=== PATIENT | male | born 1985 | race Two or more races ===

== ENCOUNTER → 2019-12-07 | Day surgery (SDC) | payer MEDICARE ==
[2019-11-26 09:04] LABS: EOSINOPHILS % (AUTO) 1.2 % (0.0-3.0); HEMATOCRIT 31.3 % (42.0-52.0); HEMOGLOBIN 10.7 G/DL (14.2-18.0); LYMPHOCYTES % (AUTO) 41.5 % (20.0-45.0); MEAN CORPUSCULAR VOLUME 84 FL (80-99); MONOCYTES % (AUTO) 7.2 % (1.0-10.0); NEUTROPHILS % (AUTO) 49.1 % (45.0-75.0); PLATELET COUNT 349 K/UL (150-450); RED BLOOD COUNT 3.72 M/UL (4.70-6.10); RED CELL DISTRIBUTION WIDTH 12.2 % (11.6-14.8); WHITE BLOOD COUNT 5.2 K/UL (4.8-10.8)
[2019-11-26 09:09] LABS: ANION GAP 7 mmol/L (5-15); BLOOD UREA NITROGEN 33 mg/dL (7-18); CALCIUM 9.1 MG/DL (8.5-10.1); CARBON DIOXIDE 26 MMOL/L (21-32); CHLORIDE 100 MMOL/L (98-107); CREATININE 1.2 MG/DL (0.55-1.30); POTASSIUM 5.6 MMOL/L (3.5-5.1); SODIUM 133 MMOL/L (136-145)
[2019-11-26 09:11] LABS: INR 0.9 (0.9-1.1)
--- NOTE | 2019-11-26 09:45 | Diagnostic Imaging Report ---
Procedure: XRAY Chest 2v Reason for study: Preoperative examination. Cough. Comparison films: 06/30/2005. FINDINGS: Frontal and lateral views of the chest are obtained. Vascularity is normal. The lung hernández are clear bilaterally. Cardiac and mediastinal silhouette are within normal limits. CP angles are sharp. The bony thorax appear unremarkable. IMPRESSION: NO ACUTE CARDIOPULMONARY DISEASE.
--- NOTE | 2019-11-26 12:30 | Pre-op HX & Phy Repo 2 SIG ---
DATE OF ADMISSION: 11/26/2019 REASON FOR EVALUATION: I was asked by Dr. Pasquale Darnell to see this 34-year-old male, who is going for elective surgery on the right eye on December 07, 2019 at this [facility] Procedure Department. The patient was evaluated and chart was reviewed. The patient is a 34-year-old male with right eye cataract. Please see History and Physical by Dr. Pasquale Darnell. PAST MEDICAL HISTORY: Remarkable for type 1 insulin-dependent diabetes mellitus, peripheral diabetic neuropathy. The patient is HIV positive. Denies history of chest pain, palpitation, or heart attack. The patient has a history of hypertension, untreated, given the patient has a prescription from his primary care physician. Denies history of pulmonary problem, no asthma or bronchitis. No history of stroke or seizures. Denies history of GI problems, hepatitis, gastritis. Denies history of thyroid problem. The patient has history of anemia and renal insufficiency. SURGICAL HISTORY: Amputation, left big toe. FAMILY HISTORY: Father has diabetes. Mother, okay. ALLERGIES: Not known. PRESENT MEDICATIONS: The patient takes gabapentin, Lantus 40 units daily. Does not take blood pressure medication though he has a prescription. The patient stopped taking antiviral HIV medication. HABITS: The patient smokes, occasional alcohol. No street drugs. PHYSICAL EXAMINATION: GENERAL: Alert, well-developed, well-nourished male in his 30s. VITAL SIGNS: Blood pressure elevated systolic 170, temperature 97.2, pulse 90, O2 saturation 100% on room air. SKIN: Clear and warm. LYMPH NODES: Not enlarged. HEENT: Head is normocephalic and atraumatic. Ears, clear. Eyes, full description per Dr. Pasquale Darnell. Mouth, clear and moist. No dentures. NECK: No jugular venous distention. Carotids artery +2. Trachea is midline. CHEST: There are two chest tattoos. No asymmetry. No deformity. LUNGS: Clear to auscultation and percussion. No rales or rhonchi. HEART: Sinus rhythm. No ectopy. No murmur. No S3 or S4. ABDOMEN: Soft. Benign. Liver and spleen not enlarged. EXTREMITIES: No edema. No varicose vein. GENITOURINARY TRACT: No CVA tenderness. No dysuria. NERVOUS SYSTEM: Peripheral diabetic neuropathy, both feet. LABORATORY AND DIAGNOSTIC DATA: ECG pending. Laboratory sodium 133, potassium 5.6, BUN 33, and creatinine 1.2. Blood sugar 451 random, calcium 9.1 and GFR more than 60 mL/min. Hemoglobin 10.7, hematocrit 31.3. IMPRESSION: 1. Posterior subcapsular cataract, right eye. 2. Insulin-dependent diabetes mellitus type 1. 3. Hypertension, untreated. 4. Peripheral diabetic neuropathy. 5. Anemia. 6. Hyperkalemia. 7. Chronic diabetic retinopathy. PLAN: Recheck blood sugar, potassium, fasting prior to surgery. Review EKG. Take antihypertensive medication regularly and check blood pressure. Check the patient for COVID-19 virus and if the patient's condition and laboratory work satisfactory, the patient will be revaluated for surgery. Thank you very much, Dr. Darnell, for privilege to participate in presurgical care of this interesting patient. Paul Lyles M.D. DR: AIXA JOB#: [id number] CC:
--- NOTE | 2019-12-03 14:53 | Opthalmology H&P ---
Ophthalmology H&P H&P Chief Complaint: decreased vision in right eye HPI Vision Affects Ability to: read, drive, manage personal affairs Past Ocular History: retinal problems - Hemorrhage OS, HPI Narrative Blurry vision Exam Visual Acuity: OD Counting fingers OS 20/160 Tension: OD 15 OS 14 Eye Exam: normal OU: external exam, palpebral fissure-width, marginal reflex distance, levator function, corneas, anterior chambers; findings: lens - PSC OU , fundus exam Assessment/Plan Treatment Plan: cataract extraction w/ lens implant Goals of Treatment: improvement of vision, enhance quality of life Attestation Attestation The risks and benefits of the surgery as well as alternative procedures were explained to the patient in detail. Pasquale Darnell MD December 03, 2019 14:53
--- NOTE | 2019-12-03 14:55 | Pre-Procedure Note/Attestation ---
Pre-Procedure Note/Attestation Complete Prior to Procedure Planned Procedure: right Procedure Narrative: Cataract extraction with intraocular lens implant right eye Indications for Procedure Pre-Operative Diagnosis: Posterior subcapsular cataract right eye Attestation I attest that I discussed the nature of the procedure; its benefits; risks and complications; and alternatives (and the risks and benefits of such alternatives ), prior to the procedure, with the patient (or the patient's legal provider service representative). I attest that, if there was a reasonable possibility of needing a blood transfusion, the patient (or the patient's legal provider service representative) was given the [facility] standardized written summary, pursuant to the [place] Blood Safety Act ([place] Health and Safety Code # 1645, as amended). I attest that I re-evaluated the patient just prior to the surgery and that there has been no change in the patient's H&P, except as documented below: Pasquale Darnell MD December 03, 2019 14:55
[2019-12-07] VITALS (8 sets, daily range): BP systolic 153–166; BP diastolic 10–108
[~2019-12-07] VITALS: Ht 180.3 cm; Wt 81.6 kg
[~2019-12-07] MED LIST: ABILIFY10 MG ORAL; Akten 3.5% 1ml Btl RIGHT EYE ONE; BSS 15ml BTL ONE; BSS 500ml btl ONE; Bupivacaine 0.75% 30ml vial INJ ONE; Carbachol 0.01% Op Soln 1.5ml vial ONE; EPINEPHrine 1mg/1ml Amp ONE; GABAPENTIN400 MG ORAL; HUMULIN R100 UNIT/1 SUBQ; LANTUS SOL100 UNIT/1 SUBQ; LR 1000ml ONE; Lidocaine 2% MPF 5ml Vial INJ ONE; Lidocaine 4% Amp 5ml ONE; Midazolam 2mg/2ml Inj ONE; NS Irrig 1000ml ONE; Pilocarpine 1% Opth 15ml Soln ONE; Polysporin Oint 15gm TOPIC ONE; Povidone-Iodine 5% opth solution ONE; Proparacaine 0.5% Opth Soln 15ml RIGHT EYE ONE; Sodium Hyaluronate 10 mg/ml 0.85ml ONE; Sterile Water Irrig 1000ml IRRIG ONE; Tetracaine 0.5% Opth 4ml Soln RIGHT EYE ONE; acetaZOLAMIDE 500mg Inj ONE; fentaNYL 100 mcg/2 mL IV ONE; fentaNYL 100 mcg/2 mL IV PRN; prednisoLONE acetate 1% Opth Susp 1ml ONE
[2019-12-07] MEDS: Diclofenac Sod 0.1% Op Soln RIGHT EYE SCH ×3 (06:40→06:55)
[2019-12-07] MEDS: Tobramycin Op Soln 0.3% 5ml RIGHT EYE SCH ×3 (06:41→06:55)
[2019-12-07] MEDS: Tropicamide 1% Opth 15ml Soln RIGHT EYE SCH ×3 (06:41→06:56)
[2019-12-07] MEDS: Phenylephrine 10% Opth Soln 5ml RIGHT EYE SCH ×3 (06:41→06:55)
[2019-12-07] MEDS: Cyclopentolate 1% Opth Sol 2ml RIGHT EYE SCH ×3 (06:41→06:56)
--- NOTE | 2019-12-07 07:33 | Anethesia Preoperative Eval ---
Anesthesia Pre-op PMH/ROS General Date of Evaluation: Dec 07, 2019 Time of Evaluation: 07:32 Anesthesiologist: rory ASA Score: ASA 3 Mallampati Score Class I : Soft palate, uvula, fauces, pillars visible Class II: Soft palate, uvula, fauces visible Class III: Soft palate, base of uvula visible Class IV: Only hard plate visible Mallampati Classification: Class III Surgeon: garcia Diagnosis: cataract Surgical Procedure: cataract extraction Anesthesia History: none Family History: no anesthesia problems Allergies: Coded Allergies: No Known Allergies (Unverified , 11/26/19) Medications: see eMAR Patient NPO?: Yes NPO Date: Dec 07, 2019 NPO Time: 00:01 Past Medical History Cardiovascular: Reports: HTN Pulmonary: Denies: asthma, COPD, ADIS, other Gastrointestinal/Genitourinary: Denies: GERD, CRI, ESRD, other Neurologic/Psychiatric: Reports: depression/anxiety Endocrine: Reports: DM - type1; Denies: hypothyroidism, steroids, other HEENT: Reports: cataract (R) Hematology/Immune: Denies: anemia, DVT, bleeding disorder, other Musculoskeletal/Integumentary: Denies: OA, RA, DJD, DDD, edema, other PMH Narrative: HIV postive PSxH Narrative: toe surgery Anesthesia Pre-op Phys. Exam Physician Exam Last Vital Signs Date Time Temp Pulse Resp B/P (MAP) Pulse Ox O2 Delivery O2 Flow Rate FiO2 12/07/19 07:01 97.2 66 18 154/98 99 Room Air Neurologic: CN 2-12 intact Cardiovascular: RRR Respiratory: CTA Gastrointestinal: S/NT/ND Airway Exam Mallampati Classification 2 Mallampati Score: Class II MO: full ROM: full Dentures: no upper, no lower Anesthesia Pre-op A/P Studies Pre-op Studies: EKG - SR Risk Assessment & Plan Assessment: denies CP/SOB Plan: mac Status Change Before Surgery: Aishwarya Allen CRNA Dec 07, 2019 07:33
--- NOTE | 2019-12-07 09:26 | Immediate Post-Op Evaluation ---
Immediate Post-Op Evalulation Immediate Post-Op Evalulation Procedure: right eye cataract extraction Date of Evaluation: Dec 07, 2019 Time of Evaluation: 08:35 IV Fluids: 500 Blood Pressure Systolic: 150 Blood Pressure Diastolic: 70 Pulse Rate: 67 Respiratory Rate: 14 O2 Sat by Pulse Oximetry: 99 Temperature (Fahrenheit): 97.7 Nausea: No Vomiting: No Patient Status: awake, reacts, patent Hydration Status: adequate Drug: none GemariAishwarya burleson CRNA Dec 07, 2019 09:26
--- NOTE | 2019-12-07 09:27 | 48 Hour Post Anesthesia Eval ---
Post Anesthesia Evaluation Procedure: right eye cataract extraction Date of Evaluation: Dec 07, 2019 Time of Evaluation: 09:27 Blood Pressure Systolic: 157 0: 70 Pulse Rate: 56 Respiratory Rate: 14 O2 Sat by Pulse Oximetry: 98 Airway: patent Nausea: No Vomiting: No Hydration Status: adequate Cardiopulmonary Status: stable Mental Status/LOC: patient returned to baseline Post-Anesthesia Complications: none Follow-up care needed: N/A Aishwarya Tamez CRNA Dec 07, 2019 09:27
--- NOTE | 2019-12-07 13:34 | Brief Operative Note ---
Immediate Post Operative Note Operative Note Chief Complaint: Blurry vision Pre-op Diagnosis: Posterior subcapsular cataract right eye Procedure: Cataract extraction with IOL implant right eye Post-op Diagnosis: Pseudophakia OD Findings: consistent w/pre-op dx studies Surgeon: Pasquale Darnell MD Anesthesiologist: Aishwarya Villagomez MD Anesthesia: MAC Specimen: none Complications: none Condition: stable Fluids: LR Estimated Blood Loss: none Drains: none Implant(s) used?: Yes - IOL-OD Pasquale Darnell MD Dec 07, 2019 13:34
--- NOTE | 2019-12-07 13:40 | Operative Note - PDOC ---
Operative Note Operative Note Date of Operation/Procedure: Dec 07, 2019 Chief Complaint: Blurry vision Pre-op Diagnosis: Posterior subcapsular cataract right eye Procedure: Cataract extraction with IOL implant right eye Post-op Diagnosis: Pseudophakia OD Operative Findings: consistent w/pre-op dx studies Surgeon: Pasquale Darnell MD Anesthesiologist: Aishwarya Villagomez MD Anesthesia: MAC Specimen: none Complications: none Condition: stable Fluids: LR Estimated Blood Loss: none Drains: none Implant(s) used?: Yes - IOL-OD Indications for Procedure Posterior subcapsular cataract right eye Description of Procedure This patient has been complaining visually significant cataract in the right eye with the best corrected visual acuity of counting fingers at two feet distance. The patient complains of difficulties in performing activities of daily living and wants to manage personal affairs with comfort and accuracy and see well enough to move with safety at home and outdoors independently. The risks, benefits and alternatives of the procedure were discussed with the patient in the office prior to scheduling surgery. All questions from the patient were answered after the surgical procedure was explained in detail. The risks of the procedure as explained to the patient include, but are not limited to, pain, infection, bleeding, loss of vision, retinal detachment, need for further surgery, loss of lens nucleus, double vision, etc. Alternative procedures were discussed which include, to do nothing or seek a second opinion. Informed consent for this procedure was obtained from the patient. The patient was referred to a primary care physician for a cardiopulmonary clearance prior to surgery, after proper evaluation was done patient was properly scheduled for outpatient surgery. The patient was brought to the operating room where the anesthesiologist established I.V. lines and cardiac monitoring leads. Mild intravenous sedation was administered. The patient was then prepared with a 5% solution of povidone -iodine to the conjunctival fornix and lashes, and a 5% solution of povidone- iodine to the lids and periorbital skin. The patient was then draped in the usual sterile fashion. A lid speculum was then placed in the operative eye. A keratome blade was then used to create a biplanar incision into the anterior chamber. Viscoelastics was then instilled into the anterior chamber. A capsulorrhexis was then fashioned with an utrata forceps. BSS and a cannula were then used to hydrodissect and hydro delineate the lens. Paracentesis incision was made at 3 o'clock with sharp blade. The phacoemulsification unit, after being properly adjusted and tested, was then used to emulsify the nucleus. Residual cortical material was aspirated with the irrigation and aspiration unit. Healon was then instilled into the anterior chamber. The corneal wound was then enlarged to the size of the optic with the nataliia keratome blade. The intraocular lens was then inspected for right power and size and thought to be satisfactory. Then the lens was gently placed in the capsular bag. Positioning within the capsular bag was confirmed by direct visualization. Optic centration was accomplished with a [place] hook. Viscoelastics was removed from the anterior chamber using the irrigation and aspiration unit. The corneal wound was then tested for leaks and none were found. The lid speculum were then removed. Sponge and needle counts were correct. An eye patch and shield were placed over the operative eye. The patient was taken to the recovery room in stable condition. There were no complications. The patient tolerated the procedure well. The patient was then transferred to the ambulatory surgery unit in stable and satisfactory condition , was given detailed written instructions and asked to follow up in the office the next day. Pasquale Darnell MD Dec 07, 2019 13:40
== END | disposition home or self-care (01) ==
LOC: SUR 06:19
DX: H25.041 Posterior subcapsular polar age-related cataract, right eye (principal); E10.42 Type 1 diabetes mellitus with diabetic polyneuropathy; B20 Human immunodeficiency virus [HIV] disease; I10 Essential (primary) hypertension; Z89.412 Acquired absence of left great toe; Z79.899 Other long term (current) drug therapy; F17.200 Nicotine dependence, unspecified, uncomplicated; E10.319 Type 1 diabetes mellitus with unspecified diabetic retinopathy without macular edema; D64.9 Anemia, unspecified; E87.5 Hyperkalemia
CPT/HCPCS: 36415; 66984; 71046; 80048; 85025; 85610; 85730; 93005; 94003; J0171; J1100; J2250; J3010; J3370; J7120; V2632; 94150